=== PATIENT | male | born 1965 | race Caucasian/White ===

== ENCOUNTER → 2017-03-21 | Outpatient (CLI) | payer OTHER ==
[~2017-03-21] MED LIST: ASTN NAE; FLUT0.15 NAE; MULT-506 PO; PRLSR20 PO; RANI150T3 PO
--- NOTE | 2017-03-21 16:39 | DIAGNOSTIC IMAGING REPORT ---
CHEST CT WITHOUT CONTRAST CT DOSE: 472.84 mGycm HISTORY: Follow-up pulmonary NODULE TECHNIQUE: Multiaxial CT images of the chest were performed without contrast. COMPARISON: Chest CT 04/01/2016. Chest CT 04/15/2015. FINDINGS: No mediastinal or hilar lymphadenopathy. Stable hypodense lesions within the spleen. These favor cysts. Dominant lesion within the left hepatic lobe measures 3 cm. Normal adrenal glands and spleen. No pleural or pericardial effusions. The heart is normal in size. Old, healed right-sided rib fracture. The central airways are patent. No pneumothorax. A few scattered bilateral subcentimeter pulmonary nodules remain stable. Dominant nodule within the right lung on image 116 measures 4 mm and the dominant nodule within the left lung is seen within the left lower lobe and measures 5 mm. IMPRESSION: A few subcentimeter nodules demonstrate near 2 year stability. Therefore, these are likely benign. No new pulmonary nodules identified. Electronically signed by: Jose Luis Domínguez M.D. 03/21/2017 4:37 PM Dictated Date/Time: 03/21/2017 4:24 PM
== END | disposition home or self-care (01) ==
LOC: C.CTS 16:14
PROVIDERS: ATTEND Physician Assistant
DX: R91.1 Solitary pulmonary nodule (principal)

== ENCOUNTER → 2018-03-07 | Outpatient (CLI) | payer OTHER ==
--- NOTE | 2018-03-07 09:26 | DIAGNOSTIC IMAGING REPORT ---
CHEST 2 VIEWS ROUTINE HISTORY: Cough. COMPARISON: Chest 08/10/2016. Chest CT 03/21/2017. FINDINGS: The lungs are clear. Cardiac silhouette is normal in size. No pleural effusions. No pneumothorax. IMPRESSION: No acute process. Electronically signed by: Jose Luis Domínguez M.D. 03/07/2018 9:25 AM Dictated Date/Time: 03/07/2018 9:22 AM
[2018-03-07 10:23] LABS: BASO % 0.7 %; BASO ABS # 0.04 K/uL (0-0.2); EOS % 7.3 %; EOS ABS # 0.43 K/uL (0-0.5); HEMATOCRIT 45.3 % (42-52); HEMOGLOBIN 15.2 g/dL (14.0-18.0); IG# 0.01 K/uL (0.00-0.02); LYMPH % 31.6 %; LYMPH ABS # 1.86 K/uL (1.2-3.4); MEAN CELL VOLUME 90.6 fL (80-100); MEAN CORPUSCULAR HEMOGLOBIN 30.4 pg (25-34); MEAN CORPUSCULAR HGB CONC 33.6 g/dl (32-36); MONO ABS # 0.53 K/uL (0.11-0.59); NEUT % 51.2 %; NEUT ABS # 3.02 K/uL (1.4-6.5); PLATELET COUNT 258 K/uL (130-400); RED CELL DISTRIBUTION WIDTH CV 13.3 % (11.5-14.5); RED CELL DISTRIBUTION WIDTH SD 43.7 fL (36.4-46.3); WHITE BLOOD COUNT 5.89 K/uL (4.8-10.8)
== END | disposition home or self-care (01) ==
LOC: C.RAD1850 09:06
PROVIDERS: ATTEND Physician Assistant
DX: R05 Cough (principal)

== ENCOUNTER → 2018-04-04 | Outpatient (CLI) | payer OTHER ==
--- NOTE | 2018-04-04 13:21 | EXERCISE STRESS ECHO ---
*NOTICE TO RECEIVING LIBERTARIAN AGENCY This information is strictly Confidential and protected under [place] law. [place] law prohibits you from making any further disclosure of this information unless further disclosure is expressly permitted by the written consent of the person to whom it pertains or is authorized by law. A general authorization for the release of medical or other information is not sufficient for this purpose. Hospital accepts no responsibility if the information is made available to any other person, INCLUDING THE PATIENT. Interpretation Summary * Name: JIM SQUIRES Study Date: 04/04/2018 10:40 AM BP: 151/71 mmHg * Patient Location: [facility] HR: 77 * : 1965 (M/d/yyyy) Gender: Male Height: 72 in * Age: 52 yrs Ethnicity: [place] Weight: 205 lb * Referring Physician: Rupa Esquivel PA-C * Performed By: Taisha Allison RDCS * * Reason For Study: Chest Pain * BSA: 2.2 m2 * -- Conclusions -- * Left ventricular systolic function is normal. * Diastolic dysfunction, Grade II (pseudonormalization pattern). * There is mild mitral regurgitation. * Right ventricular systolic pressure is normal. * Diagnostic exercise echocardiogram without evidence of inducible ischemia Procedure Details * ECHOEX, CPT #[id number] * ECHO DOPPLER, CPT #[id number] * ECHO COLOR FLOW, CPT #[id number] Left Ventricular Findings with Stress * Diagnostic exercise echocardiogram without evidence of inducible ischemia Left Ventricle * The left ventricle is normal in size. * There is normal left ventricular wall thickness. * Ejection Fraction = 60-65%. * Left ventricular systolic function is normal. * Diastolic dysfunction, Grade II (pseudonormalization pattern). * The left ventricular wall motion is normal at rest. Right Ventricle * The right ventricle is normal in size and function. Atria * The left atrial size is normal. * Right atrial size is normal. Mitral Valve * The mitral valve anatomy is normal. * There is mild mitral regurgitation. Tricuspid Valve * The tricuspid valve is not well visualized, but is grossly normal. * There is trace tricuspid regurgitation. * Right ventricular systolic pressure is normal. Aortic Valve * The aortic valve is normal in structure and function. * The aortic valve is trileaflet. * No hemodynamically significant valvular aortic stenosis. * There is no significant aortic regurgitation. Pulmonic Valve * The pulmonic valve is not well seen, but is grossly normal. Great Vessels * The aortic root is normal size. Pericardium * There is no pericardial effusion. Stress Parameters * Normal baseline electrocardiogram. * Stress ECG: No ST changes. No arrhythmias. * The stress portion of this study was personally supervised by the undersigned interpreting physician. * Rest heart rate was '77' BPM. * Rest blood pressure was '151/77' * Maximum heart rate achieved was 169 bpm. * Maximum heart rate was 100 % of maximum age-predicted heart rate. * Maximum blood pressure was '170/80' * Total exercise time was '10:00' * Maximum exercise MET level achieved was '11.70' METS * Maximum treadmill speed was '4.20' miles per hour. * Maximum treadmill elevation was '16.00'% grade. Left Ventricular Findings with Stress * Baseline EKG was normal There were no significant ST or T-wave changes during exercise or recovery Baseline echocardiogram was normal There is normal augmentation of all segments without development of regional wall motion abnormalities at peak exertion There were some symptoms a mild chest pressure and fluttering. Normal heart rate and blood pressure response to exercise Bloom treadmill score: 6 (low risk) MMode 2D Measurements and Calculations IVSd 1.0 cm IVSs 1.3 cm LVIDd 4.6 cm LVIDs 2.9 cm LVPWd 0.92 cm LVPWs 1.6 cm IVS/LVPW 1.1 FS 37.9 % EDV(Teich) 99.8 ml ESV(Teich) 31.9 ml EF(Teich) 68.1 % EDV(cubed) 100.5 ml ESV(cubed) 24.1 ml EF(cubed) 76.0 % % IVS thick 29.2 % % LVPW thick 76.4 % LV mass(C)d 155.2 grams LV mass(C)dI 72.1 grams/m\S\2 LV mass(C)s 145.5 grams LV mass(C)sI 67.6 grams/m\S\2 SV(Teich) 67.9 ml SI(Teich) 31.5 ml/m\S\2 SV(cubed) 76.4 ml SI(cubed) 35.5 ml/m\S\2 Ao root diam 2.9 cm Ao root area 6.4 cm\S\2 ACS 2.0 cm LA dimension 3.3 cm LA/Ao 1.2 LVAd ap4 31.6 cm\S\2 LVLd ap4 8.8 cm EDV(MOD-sp4) 97.3 ml EDV(sp4-el) 96.7 ml LVAs ap4 17.2 cm\S\2 LVLs ap4 7.4 cm ESV(MOD-sp4) 38.8 ml ESV(sp4-el) 33.8 ml EF(MOD-sp4) 60.1 % EF(sp4-el) 65.0 % LVAd ap2 24.7 cm\S\2 LVLd ap2 8.4 cm EDV(MOD-sp2) 65.9 ml EDV(sp2-el) 61.8 ml LVAs ap2 11.7 cm\S\2 LVLs ap2 6.6 cm ESV(MOD-sp2) 19.2 ml ESV(sp2-el) 17.6 ml EF(MOD-sp2) 70.8 % EF(sp2-el) 71.4 % LVLd %diff -4.26 % EDV(MOD-bp) 81.4 ml LVLs %diff -12.86 % ESV(MOD-bp) 27.5 ml EF(MOD-bp) 66.2 % SV(MOD-sp4) 58.5 ml SI(MOD-sp4) 27.2 ml/m\S\2 SV(MOD-sp2) 46.7 ml SI(MOD-sp2) 21.7 ml/m\S\2 SV(MOD-bp) 53.9 ml SI(MOD-bp) 25.0 ml/m\S\2 SV(sp4-el) 62.9 ml SI(sp4-el) 29.2 ml/m\S\2 SV(sp2-el) 44.2 ml SI(sp2-el) 20.5 ml/m\S\2 Doppler Measurements and Calculations MV E max tiffanie 79.3 cm/sec MV A max tiffanie 63.0 cm/sec MV E/A 1.3 MV dec time 0.21 sec Ao V2 max 171.7 cm/sec Ao max PG 11.8 mmHg Ao max PG (full) 4.6 mmHg LV V1 max PG 7.2 mmHg LV V1 max 133.7 cm/sec PA V2 max 96.6 cm/sec PA max PG 3.7 mmHg PI max tiffanie 117.3 cm/sec PI max PG 5.5 mmHg PI dec slope 113.7 cm/sec\S\2 PI P1/2t 302.3 msec TR max tiffanie 192.4 cm/sec
== END | disposition home or self-care (01) ==
LOC: C.CPL 10:35
PROVIDERS: ATTEND Physician Assistant
DX: R07.89 Other chest pain (principal)